=== PATIENT | male | born 1970 | race African-American/Black ===

== ENCOUNTER 2020-02-28 10:20 | Emergency (ER) | payer MEDICARE, MEDICAID ==
[~2020-02-28] VITALS: Ht 180.3 cm; Wt 88.0 kg
[2020-02-28 10:24] VITALS: BP 141/87
== END 2020-02-28 10:34 | disposition left against medical advice (07) ==
LOC: ER 10:33
DX: F23 Brief psychotic disorder (principal); Z53.21 Procedure and treatment not carried out due to patient leaving prior to being seen by health care provider